=== PATIENT | male | born 1955 | race Caucasian/White ===

== ENCOUNTER 2017-01-01 10:31 | Emergency (ER) | payer SELFPAY ==
--- NOTE | 2017-01-01 13:22 | UC ---
Knee Pain HPI - HPI Summary HPI Summary: complaint of right knee pain after being kicked by a cow yesterday morning though he hyperextnded his knee able to ambuate after injury but couldn't bend his knee swelled up immediately used some ice today can ambulate with pain, , can bend his knee with pain constant aching non raditing pain feels adrianne in the back of knee took some ibuprofenlasy night and this morning - History of Current Complaint Chief Complaint: UCLowerExtremity Stated Complaint: RIGHT KNEE INJURY WC Time Seen by Provider: 01/01/17 13:12 Hx Obtained From: Patient - Allergies/Home Medications Allergies/Adverse Reactions: Allergies Allergy/AdvReac Type Severity Reaction Status Date / Time No Known Allergies Allergy Verified 01/01/17 11:53 Home Medications: Home Medications Ibuprofen TAB* [Motrin TAB* 600 MG] 600 mg PO BID PRN 01/01/17 [History Confirmed 01/01/17] PMH/Surg Hx/FS Hx/Imm Hx Previously Healthy: Yes Cardiovascular History: Hypertension - Surgical History Surgical History: Yes Surgery Procedure, Year, and Place: nares ; right great near amputatiion - Family History Known Family History: Negative: Cardiac Disease, Hypertension, Diabetes - Social History Occupation: Employed Full-time Lives: With Family Alcohol Use: None Substance Use Type: None Smoking Status (MU): Never Smoked Tobacco Review of Systems Constitutional: Negative Skin: Negative Eyes: Negative ENT: Negative Respiratory: Negative Cardiovascular: Negative Gastrointestinal: Negative Genitourinary: Negative Motor: Negative Neurovascular: Negative Musculoskeletal: Other: - right knee pain Neurological: Negative Psychological: Negative All Other Systems Reviewed And Are Negative: Yes Physical Exam Triage Information Reviewed: Yes Appearance: No Pain Distress, Well-Nourished Vital Signs: Initial Vital Signs Temp 99 F 01/01/17 11:39 Pulse 78 01/01/17 11:39 Resp 20 01/01/17 11:39 BP 136/83 01/01/17 11:39 Vital Signs Reviewed: Yes Eyes: Positive: Conjunctiva Clear ENT: Positive: Pharynx normal, TMs normal Neck: Positive: No Lymphadenopathy Respiratory: Positive: Lungs clear, Normal breath sounds, No respiratory distress, No accessory muscle use Cardiovascular: Positive: RRR, No Murmur, Pulses Normal Abdomen Description: Positive: Nontender, No Organomegaly, Soft Bowel Sounds: Positive: Present Musculoskeletal: Positive: Other: - No bony deformities, tenderness in throughout medial side of knee possible bakers cyst.limited ROM (extension/ flexion). Limited internal and external rotation. Medial, lateral meniscus; anterior, posterior cruciate ligaments ,medial & lateral collateral ligaments intact as assessed with negative Anterior/Posterior Drawer signs, Lachmans, and McMurrays Tests. exam limited by edema throughout knee Neurological: Positive: Alert Psychological Exam: Normal Skin Exam: Normal Knee Pain Course/Dx - Course Course Of Treatment: exam completed. US negaitve for DVT, x-ray negative for fracture. will refer to orthopedics for further evaluaiton. no work until seen by orthopedics - Differential Dx/Diagnosis Differential Diagnosis/HQI/PQRI: DVT, Fracture (Closed), Internal Derangement Of Knee, Sprain, Strain Provider Diagnoses: right knee- internal derangement Discharge - Discharge Plan Condition: Stable Disposition: HOME Patient Education Materials: Swollen Knee Joint (ED), Knee Pain (ED) Referrals: No Primary Care Phys,NOPCP [Primary Care Provider] - Bernabe Beaulieu MD [Medical Doctor] - Additional Instructions: Please call electronic publishing specialist for an appointment. They will evaluate and determine your treatment. Use crutches as needed until you are seen by orthopedics. Take acetaminophen or ibuprofen to control pain and reduce inflammation. Please review your discharge instructions. If your symptoms worsen call electronic publishing specialist or return to urgent care.
--- NOTE | 2017-01-01 13:54 | RAD ---
INDICATION: Trauma, right lower extremity pain. COMPARISON: There are no prior studies available for comparison. TECHNIQUE: Multiple real-time, color flow and Doppler tracings of the right lower extremity were obtained. FINDINGS: The common femoral, femoral, profunda femoral and popliteal veins all demonstrate normal compressibility, augmentation with compression and phasic response with respiration. The posterior tibial and peroneal veins demonstrate normal compressibility and augmentation with compression. IMPRESSION: NO EVIDENCE FOR DEEP VENOUS THROMBOSIS.
--- NOTE | 2017-01-01 14:12 | RAD ---
INDICATION: Right knee injury. TECHNIQUE: 2 views of the right knee were obtained. FINDINGS: There is soft tissue swelling present along the medial aspect of the knee. The bones are in normal alignment. No fracture is seen. Joint spaces appear maintained. IMPRESSION: SOFT TISSUE SWELLING, NO FRACTURE IS SEEN.
[2017-01-01 14:44] VITALS: BP 135/86
== END 2017-01-01 14:43 | disposition home or self-care (01) ==
LOC: UCCORT 10:31
DX: M23.91 Unspecified internal derangement of right knee (principal); W55.22XA Struck by cow, initial encounter; Y93.9 Activity, unspecified; Y92.9 Unspecified place or not applicable; Y99.9 Unspecified external cause status; I10 Essential (primary) hypertension
CPT/HCPCS: 99203; G0463